=== PATIENT | male | born 1975 | race Caucasian/White ===

== ENCOUNTER 2021-05-07 18:39 | Emergency (ER) | payer MEDICARE ==
[2021-05-07 18:43] VITALS: BP 119/79; PULSE 100; RESP 18; TEMP 98.4
--- NOTE | 2021-05-07 18:52 | ED ---
Animal Bite HPI - General Chief Complaint: Animal Bite Stated Complaint: Dog bite Source: patient, RN notes reviewed Mode of arrival: ambulatory Limitations: no limitations - History of Present Illness MD Complaint: animal bite -: hour(s) (1) Right: Forearm (2 puncture wounds) Animal: dog Description: household pet (Foster pet) Mechanism: bite Pain Description: sharp Severity scale (1-10): 7 Context: other (chasing chipmunk and he tried to stop him) - Related Data Patient Tetanus UTD: No Previous Rx's Medication Instructions Recorded Amoxicillin/Potassium Clav 1 tab PO Q12HR 7 Days #14 tab 05/07/21 [Augmentin 875-125 Tablet] Allergies Allergy/AdvReac Type Severity Reaction Status Date / Time No Known Allergies Allergy Verified 05/07/21 18:43 Review of Systems ROS Statement: Those systems with pertinent positive or pertinent negative responses have been documented in the HPI. ROS Other: All systems not noted in ROS Statement are negative. Past Medical History Past Medical History: Asthma History of Any Multi-Drug Resistant Organisms: None Reported Additional Past Surgical History / Comment(s): nasal surgery Past Psychological History: No Psychological Hx Reported Smoking Status: Never smoker Past Alcohol Use History: None Reported Past Drug Use History: None Reported General Exam Limitations: no limitations General appearance: alert, in no apparent distress Head exam: Present: atraumatic, normocephalic, normal inspection Eye exam: Present: normal appearance, PERRL, EOMI. Absent: scleral icterus, conjunctival injection, periorbital swelling Pupils: Present: normal accommodation ENT exam: Present: normal exam, normal oropharynx, mucous membranes moist Neck exam: Present: normal inspection, full ROM. Absent: tenderness, meningismus, lymphadenopathy Respiratory exam: Present: normal lung sounds bilaterally. Absent: respiratory distress, wheezes, rales, rhonchi, stridor, accessory muscle use, decreased breath sounds Cardiovascular Exam: Present: regular rate, normal rhythm, normal heart sounds. Absent: systolic murmur, diastolic murmur, rubs, gallop, clicks GI/Abdominal exam: Present: soft, normal bowel sounds. Absent: distended, ten derness, guarding, rebound, rigid Extremities exam: Present: normal inspection, full ROM, tenderness, normal capillary refill. Absent: pedal edema, joint swelling, calf tenderness Right Forearm Wrist exam: Present: tenderness, other (Puncture wound from dog bite 1 dorsal 1 ventral side) Neuro motor exam: Present: wrist extension intact, thumb opposition intact, thumb IP flexion intact, thumb adduction intact, fingers 2-5 abduction intact Neurosensory exam: Present: 2-point discrimination, radial nerve intact, ulnar nerve intact, median nerve intact Vascular: Present: normal capillary refill, radial pulse. Absent: vascular compromise Back exam: Present: normal inspection, full ROM. Absent: tenderness, CVA tenderness (R), CVA tenderness (L), muscle spasm, paraspinal tenderness, vertebral tenderness, rash noted Neurological exam: Present: alert, oriented X3, CN II-XII intact Psychiatric exam: Present: normal affect, normal mood Skin exam: Present: warm, dry, intact, normal color. Absent: rash Course Vital Signs 05/07/21 18:41 Temperature 98.4 F Pulse Rate 100 Respiratory 18 Rate Blood Pressure 119/79 O2 Sat by Pulse 96 Oximetry Medical Decision Making - Medical Decision Making Wounds were irrigated under high pressure water for 5 minutes. Puncture wounds are approximately 3 mm each. Patient has full mobility with flexion and extension. X-rays negative for fracture or foreign body. His tetanus shot was updated today. He has no medical history and no medications on a daily basis. He is a nonsmoker. He'll be placed on antibiotics directed to follow his primary care doctor in 1 week. He will be instructed to come back to the emergency room with worsening symptoms including fever, signs and symptoms of infection including redness or drainage. Case was discussed with Dr Mitchell. Disposition Clinical Impression: Dog bite Disposition: HOME SELF-CARE Instructions (If sedation given, give patient instructions): Animal Bite (ED) Additional Instructions: Take medication as prescribed. Return to the emergency room with any signs of infection including redness, drainage or fever. Prescriptions: Amoxicillin/Potassium Clav [Augmentin 875-125 Tablet] 1 tab PO Q12HR 7 Days #14 tab Is patient prescribed a controlled substance at d/c from ED?: No Referrals: Mati Rodriguez MD [Primary Care Provider] - 1-2 days Time of Disposition: 19:04
[2021-05-07] MEDS: DIPH,PERTUS(ACELL)TETVAC-LF 0.5 ML VIAL IM ONE (19:03)
[2021-05-07] MEDS: IBUPROFEN 800 MG TAB PO STA (19:04)
--- NOTE | 2021-05-07 19:13 | XR ---
EXAMINATION TYPE: XR forearm RT DATE OF EXAM: 05/07/2021 COMPARISON: NONE HISTORY: Puncture wounds. Dog bite. TECHNIQUE: 2 views FINDINGS: Radius and ulna appear intact. I see no fracture nor dislocation. Elbow joint and wrist anthony nt appear intact. IMPRESSION: Negative right forearm exam.
== END 2021-05-07 19:32 | disposition home or self-care (01) ==
LOC: EC 18:39
DX: S51.831A Puncture wound without foreign body of right forearm, initial encounter (principal); Z23 Encounter for immunization; J45.909 Unspecified asthma, uncomplicated; W54.0XXA Bitten by dog, initial encounter
CPT/HCPCS: 90471; 90715; 99283